=== PATIENT | male | born 1955 | race Caucasian/White ===

== ENCOUNTER 2020-05-15 15:39 | Emergency (ER) | payer MEDICARE, OTHER, SELFPAY ==
[2020-05-15 15:42] VITALS: BP 165/81; PULSE 80; RESP 16; TEMP 37.2; O2SAT 97; BMI 31.4
--- NOTE | 2020-05-15 16:11 | MR_ITS ---
EXAMINATION: MR BRAIN WITHOUT CONTRAST CLINICAL INFORMATION: Episodes of confusion and TIAs. COMPARISON: None. TECHNIQUE: Multiplanar, multisequence imaging of the brain was performed without contrast. FINDINGS: No diffusion abnormalities are identified to suggest an acute or subacute infarct. The ventricles are normal in size. No mass effect or midline shift is seen. No brain parenchymal signal abnormality is noted. No extra-axial fluid collections are seen. The brainstem is normal. 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 The gradient refocused acquisition demonstrates no pathologic magnetic susceptibility artifact to indicate underlying acute or chronic blood products. The craniovertebral junction, marrow signal, and midline structures are normal. The major intracranial flow voids at the level of the [place] are preserved. The dural venous sinus flow voids are maintained. The mastoid air cells and paranasal sinuses are well aerated. MR/MR head/brain wo con IMPRESSION: No acute process. 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
--- NOTE | 2020-05-15 16:11 | ED.NEUROSD ---
HPI - Neuro Symptoms/Deficit General Chief Complaint: Neuro Symptoms/Deficit Stated Complaint: TIA? Time Seen by Provider: 05/15/20 16:11 Source: patient Mode of arrival: ambulatory Limitations: no limitations History of Present Illness Onset (ago): minute(s) (started 45 minutes prior to arrival ) Location: other (seemed confused missed his exit on highway) History of same: Yes (just had normal CT scan and ECHO per him in [place] with his PCP for similar) Severity: moderate Quality: other (resolved) Relieving factors: none Exacerbating factors: none Context: gradual onset On Anticoagulants: No Associated symptoms: denies other symptoms Treatments Prior to Arrival: none Related Data Allergies Allergy/AdvReac Type Severity Reaction Status Date / Time venom-honey bee Allergy Unknown Verified 05/15/20 16:11 Review of Systems Review of Systems: Constitutional : No Weight loss, No Fever, No Chills ENT/Mouth : No sore throat, No Rhinorrhea Eyes: No Eye Pain, No Swelling, No Redness Cardiovascular : No Chest Pain, No SOB, No Dyspnea on Exertion, No Orthopnea, No Edema, No Palpitations Respiratory : No Cough, No Sputum, No Wheezing Gastrointestinal : No Nausea, No Vomiting, No Diarrhea, No Constipation, No abdominal Pain, No Hematochezia, No Melena Genitourinary : No Dysuria, No Urinary Frequency, No Hematuria, Musculoskeletal : No joint pain, No Myalgias, No Joint Swelling Skin : No Skin Lesions, No rash Neuro : No Weakness, No Numbness, No Dizziness, No Headache Psych : No Anxiety/Panic, No Depression Heme/Lymph: No Bruising, No Bleeding,No Lymphadenopathy Endocrine : No Polyuria, No Polydipsia All other systems reviewed and are negative [facility] Past Medical History Medical History (Updated 05/15/20 @ 20:00 by Regla Dwyer DO) 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 Oriented X3. No acute distress. Eyes: Pupils equal, round and reactive to light. ENT: Pharynx normal. Neck: Normal inspection. Neck supple. CVS: Normal heart rate and rhythm. Pulses normal. Respiratory: No respiratory distress. Breath sounds normal. Abdomen: Soft and nontender. Skin: Skin warm and dry. Normal skin color. Normal skin turgor. Extremities: No lower extremity edema. No calf ttp Neuro: Oriented X 3. No motor deficit. No sensory deficit. Course Course Course Narrative: no acute stroke seen on today's MRI at this time has had normal ECHO with his PCP and states his carotids were okay as well, does not need admission at this time will place on ASA 325mg MDM - Neuro Symptoms/Deficit MDM Narrative Medical decision making narrative: 65 yo male healthy here with reported 2 bouts of confusion one today that resolved - worried they are TIAs, he is neuro intact now, just had CT scan and ECHO with PCP, here again today with concern for TIA due to missing his exit and seeming off - labs, EKG< UA, MRI ordered currently negative stroke scale Lab Data Result diagrams: 05/15/20 16:25 05/15/20 16:25 Labs: Lab Results 05/15/20 05/15/20 05/15/20 Range/Units 16:25 16:25 16:25 WBC 11.1 H (4.8-10.8) X10*3/uL RBC 4.20 L (4.60-5.80) X10*6/uL Hgb 12.8 L (14.0-18.0) g/dl Hct 37.9 L (42-52) % MCV 90.2 (80-98) fL MCH 30.5 (27.0-33.0) pg MCHC 33.8 (31.0-36.0) g/dl RDW 12.9 (11.0-16.0) % Plt Count 290 (160-400) X10*3/uL MPV 10.6 (9.4-12.4) fL Immature Gran % (Auto) 0.3 (0.0-0.4) % Neut % (Auto) 68.0 (45-73) % Lymph % (Auto) 14.4 L (20-40) % [place] % (Auto) 12.1 H (2-11) % Eos % (Auto) 4.7 H (0-4) % Baso % (Auto) 0.5 (0-2) % Lymph # (Auto) 1.6 (1.2-4.9) X10*3/uL [place] # (Auto) 1.3 H (0.1-1.2) X10*3/uL Eos # (Auto) 0.5 H (0.0-0.4) X10*3/uL Baso # (Auto) 0.1 (0.0-0.2) X10*3/uL Abs Immat Gran (auto) 0.03 (0.00-0.03) X10*3/uL Absolute Neuts (auto) 7.6 (2.0-8.3) X10*3/uL Absolute Nucleated RBC 0.000 (0.0-0.012) X10*3/uL Nucleated RBC % (auto) 0.0 (0.0-0.2) /100WBC PT (10.8-13.0) SEC INR (0.9-1.1) APTT 66.7 H* (24.1-38.0) SEC Sodium 138 (135-145) mmol/L Potassium 4.1 (3.3-5.1) mmol/l Chloride 103 (96-108) mmol/L Carbon Dioxide 28 (22-29) mmol/L Anion Gap 11 L (12-20) BUN 14 (9-16) mg/dL Creatinine 0.81 (0.5-1.4) mg/dL Estim Creat Clear Calc 114.2 Estimated GFR > 60 Random Glucose 114 (60-115) mg/dL Calcium 8.5 (8.4-10.2) mg/dL Magnesium 2.2 (1.6-2.6) mg/dL Total Bilirubin 0.5 (0.0-1.0) mg/dL Direct Bilirubin 0.2 (0.0-0.5) mg/dL AST 16 (5-37) U/L ALT 15 (0-40) U/L Alkaline Phosphatase 82 (39-117) U/L Troponin I High Sens (<3.5-35.0) ng/L Total Protein 7.0 (6.5-8.0) g/dL Albumin 3.7 (3.5-5.0) g/dL TSH (0.32-4.0) mIU/mL Urine Color Urine Appearance Urine pH (5.0-8.0) Ur Specific [place] (1.005-1.025) Urine Protein (NEG-TRACE) MG/DL Urine Glucose (UA) (NEG) MG/DL Urine Ketones (NEG) MG/DL Urine Blood (NEG) Urine Nitrite (NEG) Ur Leukocyte Esterase (NEG) Urine RBC (0) /HPF Urine WBC (0-4) /HPF Ur Squamous Epith Cells /LPF Urine Bacteria /LPF 05/15/20 05/15/20 05/15/20 Range/Units 16:25 16:25 16:25 WBC (4.8-10.8) X10*3/uL RBC (4.60-5.80) X10*6/uL Hgb (14.0-18.0) g/dl Hct (42-52) % MCV (80-98) fL MCH (27.0-33.0) pg MCHC (31.0-36.0) g/dl RDW (11.0-16.0) % Plt Count (160-400) X10*3/uL MPV (9.4-12.4) fL Immature Gran % (Auto) (0.0-0.4) % Neut % (Auto) (45-73) % Lymph % (Auto) (20-40) % [place] % (Auto) (2-11) % Eos % (Auto) (0-4) % Baso % (Auto) (0-2) % Lymph # (Auto) (1.2-4.9) X10*3/uL [place] # (Auto) (0.1-1.2) X10*3/uL Eos # (Auto) (0.0-0.4) X10*3/uL Baso # (Auto) (0.0-0.2) X10*3/uL Abs Immat Gran (auto) (0.00-0.03) X10*3/uL Absolute Neuts (auto) (2.0-8.3) X10*3/uL Absolute Nucleated RBC (0.0-0.012) X10*3/uL Nucleated RBC % (auto) (0.0-0.2) /100WBC PT 13.0 (10.8-13.0) SEC INR 1.1 (0.9-1.1) APTT (24.1-38.0) SEC Sodium (135-145) mmol/L Potassium (3.3-5.1) mmol/l Chloride (96-108) mmol/L Carbon Dioxide (22-29) mmol/L Anion Gap (12-20) BUN (9-16) mg/dL Creatinine (0.5-1.4) mg/dL Estim Creat Clear Calc Estimated GFR Random Glucose (60-115) mg/dL Calcium (8.4-10.2) mg/dL Magnesium (1.6-2.6) mg/dL Total Bilirubin (0.0-1.0) mg/dL Direct Bilirubin (0.0-0.5) mg/dL AST (5-37) U/L ALT (0-40) U/L Alkaline Phosphatase (39-117) U/L Troponin I High Sens 7.1 (<3.5-35.0) ng/L Total Protein (6.5-8.0) g/dL Albumin (3.5-5.0) g/dL TSH 0.64 (0.32-4.0) mIU/mL Urine Color Urine Appearance Urine pH (5.0-8.0) Ur Specific [place] (1.005-1.025) Urine Protein (NEG-TRACE) MG/DL Urine Glucose (UA) (NEG) MG/DL Urine Ketones (NEG) MG/DL Urine Blood (NEG) Urine Nitrite (NEG) Ur Leukocyte Esterase (NEG) Urine RBC (0) /HPF Urine WBC (0-4) /HPF Ur Squamous Epith Cells /LPF Urine Bacteria /LPF 05/15/20 Range/Units 16:42 WBC (4.8-10.8) X10*3/uL RBC (4.60-5.80) X10*6/uL Hgb (14.0-18.0) g/dl Hct (42-52) % MCV (80-98) fL MCH (27.0-33.0) pg MCHC (31.0-36.0) g/dl RDW (11.0-16.0) % Plt Count (160-400) X10*3/uL MPV (9.4-12.4) fL Immature Gran % (Auto) (0.0-0.4) % Neut % (Auto) (45-73) % Lymph % (Auto) (20-40) % [place] % (Auto) (2-11) % Eos % (Auto) (0-4) % Baso % (Auto) (0-2) % Lymph # (Auto) (1.2-4.9) X10*3/uL [place] # (Auto) (0.1-1.2) X10*3/uL Eos # (Auto) (0.0-0.4) X10*3/uL Baso # (Auto) (0.0-0.2) X10*3/uL Abs Immat Gran (auto) (0.00-0.03) X10*3/uL Absolute Neuts (auto) (2.0-8.3) X10*3/uL Absolute Nucleated RBC (0.0-0.012) X10*3/uL Nucleated RBC % (auto) (0.0-0.2) /100WBC PT (10.8-13.0) SEC INR (0.9-1.1) APTT (24.1-38.0) SEC Sodium (135-145) mmol/L Potassium (3.3-5.1) mmol/l Chloride (96-108) mmol/L Carbon Dioxide (22-29) mmol/L Anion Gap (12-20) BUN (9-16) mg/dL Creatinine (0.5-1.4) mg/dL Estim Creat Clear Calc Estimated GFR Random Glucose (60-115) mg/dL Calcium (8.4-10.2) mg/dL Magnesium (1.6-2.6) mg/dL Total Bilirubin (0.0-1.0) mg/dL Direct Bilirubin (0.0-0.5) mg/dL AST (5-37) U/L ALT (0-40) U/L Alkaline Phosphatase (39-117) U/L Troponin I High Sens (<3.5-35.0) ng/L Total Protein (6.5-8.0) g/dL Albumin (3.5-5.0) g/dL TSH (0.32-4.0) mIU/mL Urine Color YELLOW Urine Appearance CLEAR Urine pH 5.5 (5.0-8.0) Ur Specific [place] 1.020 (1.005-1.025) Urine Protein NEG (NEG-TRACE) MG/DL Urine Glucose (UA) NEG (NEG) MG/DL Urine Ketones NEG (NEG) MG/DL Urine Blood NEG (NEG) Urine Nitrite NEG (NEG) Ur Leukocyte Esterase NEG (NEG) Urine RBC 0 (0) /HPF Urine WBC 0 (0-4) /HPF Ur Squamous Epith Cells TRACE /LPF Urine Bacteria NONE /LPF ECG Data Attestation: I personally reviewed and interpreted this ECG as follows: ECG interpretation date: 05/15/20 ECG interpretation time: 18:02 Interpretation: Rate: 75 Rhythm: NSR [place]: left, LVH Normal P waves. Normal MAD[place]INE. Normal QRS complex. ST T wave : normal qTC: normal prior studies: no acute ischemia The study has been interpreted contemporaneously by me. . NIH Stroke Scale Internal: Initial- Upon Arrival Time: 16:19 Level of Consciousness: Alert Level of Consciousness Questions: Answers both questions correctly Level of Consciousness Commands: Performs both tasks correctly Best Gaze: Normal Visual: No visual loss Facial Palsy: Normal Motor Arm (Right): No drift Motor Arm (Left): No drift Motor Leg (Right): No drift Motor Leg (Left): No drift Limb Ataxia: Absent Sensory: Normal Best Language: No aphasia Dysarthia: Normal Extinction and Inattention: No abnormality Score: 0 Discharge Plan Discharge Clinical Impression: Transient cerebral ischemia Patient Disposition: Home, Self-Care Instructions: Transient Ischemic Attack (ED) Additional Instructions: YOU NEED TO START TAKING 325MG ASPIRIN DAILY UNTIL YOU SEE YOUR DOCTOR Referrals: Physician,Unknown [Primary Care Provider] - 2 days (CALL YOUR PRIMARY CARE ON MONDAY)
--- NOTE | 2020-05-15 16:13 | ECG_ITS ---
Test Reason : ?TIA Blood Pressure : / mmHG Vent. Rate : 075 BPM Atrial Rate : 075 BPM P-R Int : 182 ms QRS Dur : 100 ms QT Int : 372 ms P-R-T Axes : 003 -41 003 degrees QTc Int : 415 ms Normal sinus rhythm Left axis deviation Intra-ventricular conduction delay Abnormal ECG No previous ECGs available Referred By: Regla Dwyer Electronically Signed By:CARLOS BHATTI MD
[2020-05-15 16:33] LABS: MANUAL DIFF FLAG NO
[2020-05-15 16:34] LABS: Basophils Absolute Auto 0.1 X10*3/uL (0.0-0.2); Basophils Percent Auto 0.5 % (0-2); Eosinophils Absolute Auto 0.5 X10*3/uL (0.0-0.4); Eosinophils Percent Auto 4.7 % (0-4); Hematocrit 37.9 % (42-52); Hemoglobin 12.8 g/dl (14.0-18.0); Imm Gran Abs Auto 0.03 X10*3/uL (0.00-0.03); Imm Gran Pct Auto 0.3 % (0.0-0.4); Lymphocytes Absolute Auto 1.6 X10*3/uL (1.2-4.9); Lymphocytes Percent Auto 14.4 % (20-40); Mean Corpuscular HGB Conc 33.8 g/dl (31.0-36.0); Mean Corpuscular Hemoglobin 30.5 pg (27.0-33.0); Mean Corpuscular Volume 90.2 fL (80-98); Mean Platelet Volume 10.6 fL (9.4-12.4); Monocytes Absolute Auto 1.3 X10*3/uL (0.1-1.2); Monocytes Percent Auto 12.1 % (2-11); Neutrophils Absolute Auto 7.6 X10*3/uL (2.0-8.3); Platelet Count 290 X10*3/uL (160-400); Red Cell Distribution Width 12.9 % (11.0-16.0); White Blood Count 11.1 X10*3/uL (4.8-10.8)
[2020-05-15 16:48] LABS: INTERNATIONAL NORM RATIO 1.1 (0.9-1.1)
[2020-05-15 16:51] LABS: Glucose Urine UA NEG (NEG); Leukocyte Esterase Urine NEG (NEG); Nitrite Urine NEG (NEG); PH 5.5 (5.0-8.0); Urine Blood NEG (NEG); Urine Ketones NEG (NEG); Urine Protein NEG (NEG-TRACE)
[2020-05-15 16:55] LABS: Appearance Urine CLEAR; Color Urine YELLOW
[2020-05-15 16:56] LABS: Partial Thromboplastin Time 66.7 SEC (24.1-38.0)
[2020-05-15 17:04] LABS: Troponin-I High Sensitivity 7.1 ng/L (<3.5-35.0)
[2020-05-15 17:11] LABS: Alanine Aminotransferase 15 U/L (0-40); Albumin Level 3.7 g/dL (3.5-5.0); Alkaline Phosphatase 82 U/L (39-117); Anion Gap 11 (12-20); Aspartate Amino Transferase 16 U/L (5-37); Bilirubin Direct 0.2 mg/dL (0.0-0.5); Bilirubin Total 0.5 mg/dL (0.0-1.0); Blood Urea Nitrogen 14 mg/dL (9-16); Calcium 8.5 mg/dL (8.4-10.2); Carbon Dioxide 28 mmol/L (22-29); Chloride 103 mmol/L (96-108); Creatinine Clr Calc Pharmacy 114.2; Estimated Glomerular Filt Rate > 60; Glucose Random 114 mg/dL (60-115); Magnesium 2.2 mg/dL (1.6-2.6); Potassium 4.1 mmol/l (3.3-5.1); Sodium 138 mmol/L (135-145)
[2020-05-15 17:15] LABS: RBC Urine 0 /HPF (0); Squamous Epithelial Cell Urine TRACE /LPF; WBC Urine 0 /HPF (0-4)
[2020-05-15 17:31] LABS: Thyroid Stimulating Hormone 0.64 mIU/mL (0.32-4.0)
== END 2020-05-15 20:59 | disposition home or self-care (01) ==
PROVIDERS: Emergency Provider Emergency Medicine
DX: G45.9 Transient cerebral ischemic attack, unspecified (principal)
CPT/HCPCS: 36415; 70551; 80048; 80076; 81001; 81003; 83735; 84443; 84484; 85025; 85610; 85730; 93005; 99283; 99285

== ENCOUNTER 2020-05-27 18:30 | Outpatient (REF) | payer MEDICARE, OTHER, SELFPAY ==
--- NOTE | 2020-05-27 | MR_ITS ---
EXAMINATION: MR ANGIOGRAPHY BRAIN WITHOUT CONTRAST CLINICAL INFORMATION: Transient global amnesia. COMPARISON: Brain MRI from 05/15/2020. TECHNIQUE: 3D [id number]-fi-mxmtye MR angiography was performed through the brain without the use of intravenous gadolinium and axial source images were reviewed along with rotating MIPs. FINDINGS: Normal flow-related signal within the anterior circulation without evidence of focal stenosis or occlusion of the intradural internal carotid, middle cerebral, or anterior cerebral arteries. Normal flow-related signal within the V4 segments of the vertebral arteries bilaterally. Normal flow-related signal within the proximal posterior inferior cerebellar arteries bilaterally. Small fenestration of the proximal basilar artery. Normal flow-related signal within the proximal segments of the superior cerebellar arteries bilaterally. Normal P1 segment of the left posterior cerebral artery. The P1 segment of the right posterior cerebral artery is diminutive. Robust flow across the right posterior indicating artery with origin. Normal appearance of the distal school custodian bilaterally. No demonstrated intradural aneurysms. Chronic lacunar infarcts of the deep nuclei and cerebellar hemispheres. Otherwise, no additional significant abnormalities on limited evaluation of the intracranial structures. Mild mucosal thickening of the paranasal sinuses. MR/MR angio head wo con IMPRESSION: MRA of the head without proximal occlusion or flow-limiting stenosis. No demonstrated intracranial aneurysm.
== END 2020-05-27 18:31 | disposition home or self-care (01) ==
LOC: HO.MRI 18:30
PROVIDERS: Visit Provider Psychiatry & Neurology Neurology
DX: G45.4 Transient global amnesia (principal)
CPT/HCPCS: 70544

== ENCOUNTER 2020-09-29 12:26 | Outpatient (REF) | payer MEDICARE, OTHER, SELFPAY ==
--- NOTE | 2020-09-29 13:00 | EEG_ITS ---
The waking background activity consists of a low voltage posterior symmetrical alpha of 9 hertz, intermixed with low voltage fast frequencies anteriorly. Drowsiness is characterized by diffuse theta slowing. During sleep symmetrical frontal central sleep spindles, vertex sharp transients, and K complexes developed over both hemispheres. Arousals are unremarkable. The patient remains asymptomatic. A few instances of increased amplitude theta are noted over the left frontal region. No clearly epileptiform discharges seen. IMPRESSION: This 24-hour ambulatory EEG is considered within normal limits. The patient was asymptomatic during this study. MD DARBY [place]/MICAH / [id number]
== END 2020-09-29 12:27 | disposition home or self-care (01) ==
LOC: HO.NEURO 12:26
PROVIDERS: Visit Provider Psychiatry & Neurology Neurology
DX: R56.9 Unspecified convulsions (principal)
CPT/HCPCS: 95708

== ENCOUNTER 2020-10-29 10:51 | Outpatient (REF) | payer MEDICARE, OTHER, SELFPAY ==
[2020-10-29 11:57] LABS: MANUAL DIFF FLAG NO
[2020-10-29 12:03] LABS: Basophils Absolute Auto 0.1 X10*3/uL (0.0-0.2); Basophils Percent Auto 0.9 % (0-2); Eosinophils Absolute Auto 0.5 X10*3/uL (0.0-0.4); Eosinophils Percent Auto 4.7 % (0-4); Hematocrit 43.7 % (42-52); Hemoglobin 14.4 g/dl (14.0-18.0); Imm Gran Abs Auto 0.02 X10*3/uL (0.00-0.03); Imm Gran Pct Auto 0.2 % (0.0-0.4); Lymphocytes Absolute Auto 1.8 X10*3/uL (1.2-4.9); Lymphocytes Percent Auto 18.4 % (20-40); Mean Corpuscular Hemoglobin 30.6 pg (27.0-33.0); Mean Corpuscular Volume 92.8 fL (80-98); Mean Platelet Volume 11.3 fL (9.4-12.4); Monocytes Absolute Auto 1.2 X10*3/uL (0.1-1.2); Neutrophils Absolute Auto 6.2 X10*3/uL (2.0-8.3); Neutrophils Percent Auto 63.8 % (45-73); Platelet Count 229 X10*3/uL (160-400); Red Blood Count 4.71 X10*6/uL (4.60-5.80); Red Cell Distribution Width 12.8 % (11.0-16.0); White Blood Count 9.7 X10*3/uL (4.8-10.8)
[2020-10-29 12:06] LABS: Prothrombin Time 11.8 SEC (10.8-13.0)
[2020-10-29 12:34] LABS: Partial Thromboplastin Time 67.3 SEC (24.1-38.0)
== END 2020-10-29 10:52 | disposition home or self-care (01) ==
LOC: HO.LAB 10:51
PROVIDERS: Visit Provider Psychiatry & Neurology Neurology
DX: G40.209 Localization-related (focal) (partial) symptomatic epilepsy and epileptic syndromes with complex partial seizures, not intractable, without status epilepticus (principal)
CPT/HCPCS: 36415; 80156; 85025; 85610; 85730

== ENCOUNTER 2021-04-12 12:38 | Outpatient (REF) | payer MEDICARE, OTHER, SELFPAY ==
[2021-04-12 13:16] LABS: MANUAL DIFF FLAG NO
[2021-04-12 13:19] LABS: Basophils Absolute Auto 0.1 X10*3/uL (0.0-0.2); Basophils Percent Auto 0.7 % (0-2); Eosinophils Absolute Auto 0.4 X10*3/uL (0.0-0.4); Eosinophils Percent Auto 4.7 % (0-4); Hematocrit 40.6 % (42-52); Hemoglobin 13.8 g/dl (14.0-18.0); Imm Gran Abs Auto 0.03 X10*3/uL (0.00-0.03); Imm Gran Pct Auto 0.3 % (0.0-0.4); Lymphocytes Absolute Auto 1.5 X10*3/uL (1.2-4.9); Lymphocytes Percent Auto 16.6 % (20-40); Mean Corpuscular Hemoglobin 31.5 pg (27.0-33.0); Mean Corpuscular Volume 92.7 fL (80-98); Monocytes Absolute Auto 0.9 X10*3/uL (0.1-1.2); Monocytes Percent Auto 10.4 % (2-11); Neutrophils Absolute Auto 5.9 X10*3/uL (2.0-8.3); Neutrophils Percent Auto 67.3 % (45-73); Platelet Count 264 X10*3/uL (160-400); Red Blood Count 4.38 X10*6/uL (4.60-5.80); White Blood Count 8.8 X10*3/uL (4.8-10.8)
[2021-04-12 14:26] LABS: Carbamazepine Tegretol 5.3 mcg/mL (5.0-12.0)
== END 2021-04-12 12:39 | disposition home or self-care (01) ==
LOC: HO.LAB 12:38
PROVIDERS: Visit Provider Psychiatry & Neurology Neurology
DX: G40.209 Localization-related (focal) (partial) symptomatic epilepsy and epileptic syndromes with complex partial seizures, not intractable, without status epilepticus (principal)
CPT/HCPCS: 36415; 80156; 85025

== ENCOUNTER 2021-08-10 06:28 | Outpatient (REF) | payer MEDICARE, OTHER, SELFPAY ==
[2021-08-10 11:26] LABS: MANUAL DIFF FLAG NO
[2021-08-10 11:32] LABS: Basophils Absolute Auto 0.1 X10*3/uL (0.0-0.2); Basophils Percent Auto 0.7 % (0-2); Eosinophils Absolute Auto 0.4 X10*3/uL (0.0-0.4); Eosinophils Percent Auto 5.4 % (0-4); Hematocrit 42.6 % (42.0-52.0); Hemoglobin 14.1 g/dl (14.0-18.0); Imm Gran Abs Auto 0.02 X10*3/uL (0.00-0.03); Imm Gran Pct Auto 0.2 % (0.0-0.4); Lymphocytes Absolute Auto 1.6 X10*3/uL (1.2-4.9); Lymphocytes Percent Auto 19.4 % (20-40); Mean Corpuscular HGB Conc 33.1 g/dl (31.0-36.0); Mean Corpuscular Hemoglobin 31.3 pg (27.0-33.0); Mean Corpuscular Volume 94.5 fL (80.0-98.0); Mean Platelet Volume 11.5 fL (9.4-12.4); Monocytes Absolute Auto 1.2 X10*3/uL (0.1-1.2); Monocytes Percent Auto 14.1 % (2-11); Neutrophils Absolute Auto 4.9 x10*3/uL (2.0-8.3); Neutrophils Percent Auto 60.2 % (45-73); Platelet Count 227 X10*3/uL (160-400); Red Blood Count 4.51 X10*6/uL (4.60-5.80); Red Cell Distribution Width 12.6 % (11.0-16.0); White Blood Count 8.2 X10*3/uL (4.8-10.8)
[2021-08-10 11:47] LABS: Anion Gap 11 (12-20); Carbon Dioxide 31 mmol/L (22-29); Chloride 104 mmol/L (96-108); Sodium 141 mmol/L (135-145)
[2021-08-10 12:08] LABS: Cholesterol 260 mg/dL; HDL Cholesterol 34 mg/dL; Iron 136 mcg/dL (45-160); LDL Cholesterol Calculated 193 mg/dl; Percent Iron Saturation 48 % (15-50); Total Iron Binding Capacity 285 mcg/dL (228-428); Triglycerides 166 mg/dL; Unsaturated Iron Binding 149 ug/dL
[2021-08-10 12:50] LABS: Carbamazepine Tegretol 5.7 mcg/mL (5.0-12.0)
== END 2021-08-10 06:29 | disposition home or self-care (01) ==
LOC: HO.HMGCLDS 06:28
PROVIDERS: Referring Provider Psychiatry & Neurology Neurology; Visit Provider Internal Medicine
DX: E78.5 Hyperlipidemia, unspecified (principal); D64.9 Anemia, unspecified; G40.209 Localization-related (focal) (partial) symptomatic epilepsy and epileptic syndromes with complex partial seizures, not intractable, without status epilepticus; Z86.73 Personal history of transient ischemic attack (TIA), and cerebral infarction without residual deficits
CPT/HCPCS: 36415; 80051; 80061; 80156; 83540; 85025

== ENCOUNTER 2021-08-26 13:44 | Outpatient (REF) | payer MEDICARE, OTHER, SELFPAY ==
--- NOTE | ~2021-08-26 | US_ITS ---
EXAMINATION: US RETROPERITONEAL LIMITED (AORTA) CLINICAL INFORMATION: Nicotine dependence. COMPARISON: None TECHNIQUE: Allen-scale, color Doppler and spectral Doppler evaluation of the abdominal aorta. FINDINGS: The measurements of the aorta in maximum AP and transverse dimensions respectively are as follows: Proximal: 2.65 x 2.30 cm. Mid: 2.63 x 2.18 cm. Distal: 2.8 x 3.0 cm. PSV: 81.1 cm/s. The measurements of the common iliac arteries in maximum AP and TRV dimensions are as follows: Right Common Iliac Artery: 1.3 x 1.4 cm. Left Common Iliac Artery: 1.6 x 1.0 cm. US/US abdominal aortic aneurysm IMPRESSION: Minimal aneurysmal dilatation of the infrarenal abdominal aorta which measures up to 3 cm in maximum dimension.
== END 2021-08-26 13:45 | disposition home or self-care (01) ==
LOC: HO.HMGCX 13:44
PROVIDERS: PCP Internal Medicine; Visit Provider Internal Medicine
DX: Z87.891 Personal history of nicotine dependence (principal)
CPT/HCPCS: 76706

== ENCOUNTER → 2021-12-02 13:37 | Outpatient (BNVA) | payer MEDICARE, OTHER, SELFPAY | PROVIDERS: PCP Internal Medicine; Visit Provider Surgery Vascular Surgery | DX: I71.4 Abdominal aortic aneurysm, without rupture (principal) | CPT/HCPCS: 99202 ==

== ENCOUNTER 2021-12-07 13:59 | Outpatient (REF) | payer MEDICARE, OTHER, SELFPAY ==
[2021-12-07 15:22] LABS: Anion Gap 11 (12-20); Carbon Dioxide 29 mmol/L (22-29); Chloride 104 mmol/L (96-108); Potassium 4.5 mmol/L (3.3-5.1); Sodium 139 mmol/L (135-145)
[2021-12-08 12:22] LABS: Carbamazepine Tegretol 6.8 mcg/mL (5.0-12.0)
== END 2021-12-07 14:00 | disposition home or self-care (01) ==
LOC: HO.LAB 13:59
PROVIDERS: Visit Provider Psychiatry & Neurology Neurology
DX: G40.209 Localization-related (focal) (partial) symptomatic epilepsy and epileptic syndromes with complex partial seizures, not intractable, without status epilepticus (principal); Z79.899 Other long term (current) drug therapy
CPT/HCPCS: 36415; 80051; 80156

== ENCOUNTER → 2024-09-11 14:47 | Outpatient (REF) | payer MEDICARE, OTHER, SELFPAY | LOC: HO.SL 14:47 | PROVIDERS: PCP Internal Medicine; Visit Provider Internal Medicine | DX: G47.33 Obstructive sleep apnea (adult) (pediatric) (principal) | CPT/HCPCS: 95806 ==

== ENCOUNTER → 2024-09-12 14:58 | Outpatient (BNV) | payer MEDICARE, OTHER, SELFPAY | PROVIDERS: PCP Internal Medicine; Visit Provider Internal Medicine | DX: G47.33 Obstructive sleep apnea (adult) (pediatric) (principal) | CPT/HCPCS: 95806 ==

== ENCOUNTER 2024-10-03 12:50 | Outpatient (AMB) | payer MEDICARE, OTHER, SELFPAY ==
--- NOTE | 2024-10-03 12:57 | MHC.OFFWIV ---
Intake Vital Signs 10/03/24 12:58 Height 6 ft Weight 261 lb BMI 35.4 BP 140/82 H Blood Pressure Location Lt brachial Position Sitting Pulse 77 Pulse Source Pulse Oximeter Temp 97.7 F Temp Source Oral Pulse Oximetry (%) 97 Oxygen Delivery Method Room Air Intake Visit Reasons: EP cold, cough, fever, weakness, wheezing Intake Note: Patient here for cough, loss of appetite, fatigue and wheezing that started last . Patient Tobacco Use Status: Former Tobacco user Allergies venom-honey bee Allergy (Intermediate, Verified 10/03/24 12:59) hives Do you need a note to return to daycare/school/sports/work: No HPI HPI Comments History of Present Illness Details 69 y/o male patient who presents to the walk in clinic with c/o cough, chest tightness, loss of appetite, fatigue and wheezing that started last . 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 Surgical History History of torn meniscus of right knee Family History Mother Diabetes Hepatitis C Father Emphysema lung Bipolar 1 disorder Mental health disorder Social History Housing: House Alcohol intake: current Alcohol intake frequency: holidays/special occasions only Alcohol type: wine and hard liquor Patient Tobacco Use Status: Former Tobacco user Tobacco use type: Pipe e-Cigarette/Vaping Use: Never Used Second Hand Smoke Exposure: Yes service: No Current occupational status: retired Cognitive needs: No Hearing needs: No Vision needs: No Review of Systems Const All systems reviewed & are unremarkable except as noted in HPI and below Physical Exam Vital Signs: Last Vital Signs Temp 97.7 F 10/03/24 12:58 Pulse 77 10/03/24 12:58 BP 140/82 H 10/03/24 12:58 Pulse Ox 97 10/03/24 12:58 Oxygen Delivery Method Room Air 10/03/24 12:58 BMI result Body Mass Index 35.4 Const General: cooperative and no acute distress Nutritional Appearance: obese Orientation/consciousness: patient oriented x3 HEENT Head: Yes normocephalic Ears: external ears normal and TM abnormal with fluid behind the TM bilateral General nose exam: Nasal discharge present Face and sinus: Yes sinus tenderness Mouth: moist mucous membranes Throat: Yes uvula midline Resp Effort & Inspection: normal respiratory effort and able to speak in complete sentences Auscultation: clear to auscultation bilaterally, no crackles, no rales, no rhonchi and no wheezes Cardio Heart sounds: S1 normal heart sound present and S2 normal heart sound present Neuro General: patient oriented x3 Assessment & Plan Assessment & Plan (1) Acute respiratory disease: Code(s): J06.9 - Acute upper respiratory infection, unspecified Plan: Ordered SARs Ordered Z-pack and cough medicine. Acetaminophen for pain and fever relief. Orders: Orders SARS-CoV2/FLU/RSV Today J06.9 - Acute upper respiratory infection, unspecified Medications: New azithromycin 500 mg PO DAILY 3 days 3 tabs 0RF J06.9 - Acute upper respiratory infection, unspecified benzonatate 200 mg (2 x 100 mg) PO BID 60 caps 0RF cough J06.9 - Acute upper respiratory infection, unspecified dextromethorphan polistirex ER (Delsym 12 hour) 10 mL PO Q12H 89 mL 0RF cough J06.9 - Acute upper respiratory infection, unspecified Coding Level of Care Code Est Pt Level 4 (71614) Diagnoses Acute respiratory disease J06.9 Time Spent (min) 20
[2024-10-03 12:58] VITALS: BP 140/82; PULSE 77; TEMP 36.5; O2SAT 97; BMI 35.4
== END 2024-10-03 14:03 | disposition home or self-care (01) ==
PROVIDERS: PCP Internal Medicine; Visit Provider Nurse Practitioner Family
DX: J06.9 Acute upper respiratory infection, unspecified (principal)

== ENCOUNTER 2024-10-03 12:50 | Outpatient (REF) | payer MEDICARE, OTHER, SELFPAY ==
[2024-10-03 17:39] LABS: Influenza A PCR NEGATIVE (Negative); Influenza B PCR NEGATIVE (Negative); Resp Syncy Virus RNA Qual PCR NEGATIVE (Negative); SARS COV2 PCR INHOUSE NEGATIVE (Negative)
== END 2024-10-03 12:51 | disposition home or self-care (01) ==
LOC: HO.LAB 12:50
PROVIDERS: Nurse Practitioner Family; PCP Internal Medicine
DX: J06.9 Acute upper respiratory infection, unspecified (principal)
CPT/HCPCS: 0241U; 99212

== ENCOUNTER 2025-06-11 08:16 | Outpatient (AMB) | payer MEDICARE, OTHER, SELFPAY ==
[2025-06-11 08:26] VITALS: BP 134/82; PULSE 65; O2SAT 98; BMI 35.5
--- NOTE | 2025-06-11 08:26 | MHC.PC.OV ---
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 Accompanied by: Self / Same As Patient Allergies venom-honey bee Allergy (Intermediate, Verified 06/11/25 08:56) hives Medication List - Last Reconciled 06/11/25 by Olivia Farrell MD carbamazepine (Tegretol) 200 mg PO TID 90 days Tobacco use date assessed: 06/11/25 Fall risk assessment: No Falls in past year Last assessed Fall Risk: 06/11/25 Dental Screening Dental Screen Date: 06/11/25 Did you have a dental visit in the last 12 months?: Yes Did you have a dental problem in the last 6 months where you did not have access to dental care?: No Was dental information given to patient?: Patient has dentist [facility] Medical History Acute respiratory disease Dyslipidemia Aneurysmal dilatation Elevated blood pressure reading Normocytic anemia Former smoker Cerebellar infarct Seizures Meniscus, medial, derangement 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 Surgical History History of torn meniscus of right knee Family History Mother Diabetes Hepatitis C Father Emphysema lung Bipolar 1 disorder Mental health disorder Social History Housing: House Alcohol intake: current Alcohol intake frequency: holidays/special occasions only Alcohol type: wine and hard liquor Patient Tobacco Use Status: Former Tobacco user Tobacco use type: Pipe e-Cigarette/Vaping Use: Never Used Second Hand Smoke Exposure: Yes service: No Current occupational status: retired Cognitive needs: No Hearing needs: No Vision needs: Yes Questionnaire PHQ-9 Over the last 2 weeks, how often have you been bothered by any of the following problems? 1. Little interest or pleasure in doing things: not at all 2. Feeling down, depressed, or hopeless: not at all 3. Trouble falling or staying asleep, or sleeping too much: not at all 4. Feeling tired or having little energy: not at all 5. Poor appetite or overeating: not at all 6. Feeling bad about yourself - or that you are a failure or have let yourself or your family down: not at all 7. Trouble concentrating on things, such as reading the newspaper or watching television: not at all 8. Moving or speaking so slowly that other people could have noticed. Or the opposite - being so fidgety or restless that you have been moving around a lot more than usual: not at all 9. Thoughts that you would be better off or of hurting yourself in some way: not at all Total score: 0 Depression Screening Interpretation: Negative Depression Screening Done: Yes 12817 - PHQ-9 Billing: Yes Source: Developed by Drs. Rubin Flores, Kaylee Plascencia, Bro Landers and colleagues, with an educational bola from [employer]. Thrive Questionnaire Date Thrive assessed: 06/09/25 I am a: Patient What is your living situation today?: I choose not to answer this question Within the past 12 months, did the food you bought not last and you didn't have the money to get more?: I choose not to answer this question Within the past 12 months, did you worry whether your food would run out before you got money to buy more?: I choose not to answer this question Do you have trouble paying for medicines?: I choose not to answer this question Do you have trouble getting transportation to medical appointments?: I choose not to answer this question Do you have trouble paying your heating and electricity bill?: I choose not to answer this question Do you have trouble taking care of your child, family member or friend?: I choose not to answer this question Do you have trouble with day-to-day activities such as bathing, preparing meals, shopping, managing finances, etc.?: I choose not to answer this question Are you currently unemployed and looking for a job?: I choose not to answer this question Are you interested in more education?: I choose not to answer this question Please select the resources that you would like help with: None Currently or been in a relationship where the following occur: No concerns reported THRIVE Score: 0 AUDIT C Alcohol Use Questionnaire (AUDIT-C) 1. How often do you have a drink containing alcohol?: Never 3. How often do you have six or more drinks on one occasion?: Never Total Score: 0 Score Reviewed/Action Taken: No FRANCISCA-7 AMB Questionnaire FRANCISCA-7 Date FRANCISCA - 7 assessed: 06/11/25 Feeling nervous, anxious, or on edge: 0 = Not at all Not being able to stop or control worryin = Not at all Worrying too much about different things: 0 = Not at all Trouble relaxin = Not at all Being so restless that it is hard to sit still: 0 = Not at all Becoming easily annoyed or irritable: 0 = Not at all Feeling afraid as if something awful might happen: 0 = Not at all Total FRANCISCA-7 score (0-4 normal; 5-9 mild; 10-14 moderate; 15-21 severe): 0 Source: Developed by Drs. Rubin Flores, Kaylee Plascencia, Bro Landers and colleagues, with an educational bola from [employer]. FRANCISCA-7 Assessment Billing FRANCISCA-7 Assessment Tool: FRANCISCA-7 Assessment 17113 Review of Systems Const All systems reviewed & are unremarkable except as noted in HPI and below Card Denies chest pain at rest, Denies chest pain with activity, Denies edema, Denies irregular heart rhythm, Denies claudication, Denies dyspnea, Denies dyspnea on exertion, Denies orthopnea, Denies paroxysmal nocturnal dyspnea and Denies slow heart rate Resp Denies cough, Denies dyspnea and Denies dyspnea on exertion GI Denies abdominal pain, Denies change in bowel habits, Denies excessive flatus, Denies nausea and Denies vomiting Skin/Breast Denies bleeding lesions, Denies changing lesions and Denies rash Neuro Denies lack of coordination Physical exam (Primary Care) Vital Signs: Last Vital Signs Pulse 65 06/11/25 08:26 BP 134/82 06/11/25 08:26 Pulse Ox 98 06/11/25 08:26 Oxygen Delivery Method Room Air 06/11/25 08:26 BMI result Body Mass Index 35.5 BMI Assessment/Plan discussion: High BMI High, discussed plan: lifestyle, weight reduction, dietary and physical activity Tobacco/Smoking Status: Tobacco use Status Tobacco use date assessed 06/11/25 06/11/25 08:29 Patient Tobacco Use Status Former Tobacco user 06/11/25 08:29 Tobacco use type Pipe 06/11/25 08:29 e-Cigarette/Vaping Use Never Used 06/11/25 08:29 PHQ-9: PHQ-9 Score PHQ-9: Total score 0 06/11/25 08:29 Depression Screening Interpretation: Negative Thrive Assessment: Date of Thrive Assessment Date Thrive assessed 06/09/25 06/11/25 08:29 Currently or been in a relationship where the following occur: No concerns reported [facility] Head: Yes normal to inspection, Yes normocephalic and Yes atraumatic Ears: external ears normal Eyes General: appearance normal, both eyes and all related structures Eyelids: Yes eyelids normal Conjunctivae: conjunctivae normal Neck Neck: Yes normal visual inspection and Yes supple Resp Effort & Inspection: normal respiratory effort Auscultation: clear to auscultation bilaterally Cardio Jugular venous distension: no JVD Rate: regular rate Rhythm: regular rhythm Heart sounds: S1 normal heart sound present and S2 normal heart sound present GI Inspection: Yes normal to inspection Palpation (GI): Soft to palpation and nontender Auscultation: normal bowel sounds Skin General skin exam: no rashes or lesions noted Neuro General: no focal motor deficits Extrem General: Yes full ROM Psych Appearance: grossly normal Coding Additional Codes PHQ-9 - 11216 - PHQ-9 Billing: Yes ([id number]) FRANCISCA-7 Assessment Billing - FRANCISCA-7 Assessment Tool: FRANCISCA-7 Assessment 77014 ([id number])
--- NOTE | 2025-06-11 09:12 | A.OFFVIS_ITS ---
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 [place] of care reviewed and updated. The patient is a 70-year-old male presenting for a Medicare Annual Wellness Exam. His past medical history is significant for a cerebellar infarct a few years ago with no residual deficits. 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 Due to this history, vaccinations are contraindicated, though he did receive a COVID-19 vaccine. Declines flu and pneumonia vaccine today. Surgical history includes a right knee surgery for a torn meniscus. He underwent a colonoscopy last year which revealed a sessile serrated polyp that was removed, with a recommendation for a repeat colonoscopy in 5 to 10 years. The patient has a diagnosis of very mild obstructive sleep apnea from a study in August and has been using a CPAP for five years. He has a known allergy to bees. Family history is notable for a mother with diabetes and hepatitis C, and a father with bipolar disorder and emphysema. The patient is classified as a former smoker for screening purposes, having tried a cigarette once or twice, which prompted a negative screening abdominal ultrasound. He reports he does not drink alcohol. 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 Surgical History History of torn meniscus of right knee Family History Mother Diabetes Hepatitis C Father Emphysema lung Bipolar 1 disorder Mental health disorder Social History (Updated 06/11/25 @ 09:22 by Olivia Farrell MD) Housing: House Alcohol intake: former Patient Tobacco Use Status: Former Tobacco user Tobacco use type: Pipe e-Cigarette/Vaping Use: Never Used Second Hand Smoke Exposure: Yes service: No Current occupational status: retired Cognitive needs: No Hearing needs: No Vision needs: Yes Questionnaire Medicare Wellness Checkup [age] What gender do you identify with?: male During the past 4 weeks, how much have you been bothered by emotional problems such as feeling anxious, depressed, irritable, sad or downhearted, and blue?: not at all During the past 4 weeks, has your physical & emotional health limited your social activities with family, friends, neighbors, or groups?: not at all During the past 4 weeks, how much bodily pain have you generally had?: no pain During the past 4 weeks, was someone available to help you if you needed & wanted help?: yes, as much as I wanted During the past 4 weeks, what was the hardest physical activity you could do for at least 2 minutes?: heavy Can you get to places out of walking distance without help? (For eg., can you travel alone on buses, taxis or drive your car?): Yes Can you go shopping for groceries or clothes without someone's help?: Yes Can you prepare your own meals?: Yes Can you do your housework without help?: Yes Because of any health problems, do you need the help of another person with your personal care needs such as eating, bathing, dressing or getting around the house?: No Can you handle your own money without help?: Yes During the past 4 weeks, how would you rate your health in general?: excellent During the past 4 weeks how have things been going for you?: very well; could hardly better Are you having difficulties driving your car?: no Do you always fasten your seat belt when you are in a car?: yes, usually During past 4 weeks, have you been bothered by the following: never: Falling or dizzy when standing up, Sexual problems?, Trouble eating well?, Teeth or denture problems?, Problems using the telephone? and Tiredness or fatigue? Have you fallen 2 or more times in the past year?: No Are you afraid of falling?: No Are you a smoker?: no During the past 4 weeks, how many drinks of wine, beer, or other alcoholic beverages did you have?: no alcohol at all Do you exercise for about 20 minutes 3 or more times a week?: yes, all the time Have you been given information to help with the following?: yes: Hazards in your house that might hurt you? and yes: Keeping track of your medications? How often do you have trouble taking medicines the way you have been told to take them?: I always take medicine as prescribed How confident are you that you can control & manage most of your health pro blems?: very confident What is your race?: White Mini Mental State Exam (MMSE) Orientation What is the (year) (season) (date) (day) (month)?: year, season, date, day and month Where are we (state) (county) (town or city) (hospital) (floor)?: state, county, town or city, hospital/clinic and floor Registration Name of 3 unrelated objects clearly and slowly, then ask patient to repeat all 3 of them. (1st repeat determines score. Make sure they can repeat all three): object 1, object 2 and object 3 Attention & Calculation (CHOOSE ONE) Spell WORLD backwards (DLROW): 5 letters Recall Ask patient to repeat the 3 items from question #3.: object 1, object 2 and object 3 Language Show patient a wristwatch & ask what it is. Repeat for pencil.: watch and pencil Ask the patient to repeat the phrase 'No ifs, ands, or buts' after you.: correct Ask the patient to 'take a piece of paper with their right hand' 'fold paper in half' 'place paper on floor': take paper in right hand, fold paper in half and place paper on floor Print the sentence 'CLOSE YOUR EYES' on a piece. If patient actually closes eyes then score.: followed written direction Give patient a blank piece of paper & ask to write a sentence. Score if it contains a noun & verb.: sentence contains subject and verb Ask patient to copy figure of intersecting pentagons exactly. Score if all 10 angles & 2 intersects are included.: all 10 angles present & 2 are intersected Score Score: 30 Activity of Daily Living Bathing - sponge bath, tub bath or shower: receives no assistance (gets in/out by self, if usual bathing means Dressing - getting clothes from closets & drawers, including inner/outer garments & fasteners.: gets clothes & gets completely dressed without help Toileting - going to the 'toilet room' for urine/bowel elimination & cleaning s elf/arranging clothes: goes to toilet room, cleans self, arranges clothes without help Transfer: moves in & out of bed and chair without help (may use support object) Continence: controls urination/bowel movements completely by self Feeding: feeds self without help Total Score: 0 Information obtained from: patient Using telephone: independent Traveling: independent Shopping: independent Preparing meals: independent Housework: independent Taking medicine: independent Managing money: independent PHQ-9 Over the last 2 weeks, how often have you been bothered by any of the following problems? 1. Little interest or pleasure in doing things: not at all 2. Feeling down, depressed, or hopeless: not at all 3. Trouble falling or staying asleep, or sleeping too much: not at all 4. Feeling tired or having little energy: not at all 5. Poor appetite or overeating: not at all 6. Feeling bad about yourself - or that you are a failure or have let yourself or your family down: not at all 7. Trouble concentrating on things, such as reading the newspaper or watching television: not at all 8. Moving or speaking so slowly that other people could have noticed. Or the opposite - being so fidgety or restless that you have been moving around a lot more than usual: not at all 9. Thoughts that you would be better off or of hurting yourself in some way: not at all Total score: 0 Depression Screening Interpretation: Negative Depression Screening Done: Yes 81444 - PHQ-9 Billing: Yes Source: Developed by Drs. Rubin Flores, Kaylee Plascencia, Bro Landers and colleagues, with an educational bola from [employer]. PHQ-2/PHQ-9 PHQ-2 Over the last 2 weeks, how often have you been bothered by any of the following problems? 1. Little interest or pleasure in doing things: not at all 2. Feeling down, depressed, or hopeless: not at all Total score: 0 If score is 3 or greater, continue 3. Trouble falling or staying asleep, or sleeping too much: not at all 4. Feeling tired or having little energy: not at all 5. Poor appetite or overeating: not at all 6. Feeling bad about yourself - or that you are a failure or have let yourself or your family down: not at all 7. Trouble concentrating on things, such as reading the newspaper or watching television: not at all 8. Moving or speaking so slowly that other people could have noticed. Or the opposite - being so fidgety or restless that you have been moving around a lot more than usual: not at all 9. Thoughts that you would be better off or of hurting yourself in some way: not at all Total score: 0 0-4 None-Minimal, 5-9 Mild, 10-14 Moderate, 15-19 Moderately Severe, 20-27 Severe Source: Developed by Drs. Rubin Flores, Kaylee Plascencia, Bro Landers and colleagues, with an educational bola from [employer]. Thrive Questionnaire Date Thrive assessed: 06/11/25 I am a: Patient What is your living situation today?: I choose not to answer this question Within the past 12 months, did the food you bought not last and you didn't have the money to get more?: I choose not to answer this question Within the past 12 months, did you worry whether your food would run out before you got money to buy more?: I choose not to answer this question Do you have trouble paying for medicines?: I choose not to answer this question Do you have trouble getting transportation to medical appointments?: I choose not to answer this question Do you have trouble paying your heating and electricity bill?: I choose not to answer this question Do you have trouble taking care of your child, family member or friend?: I choose not to answer this question Do you have trouble with day-to-day activities such as bathing, preparing meals, shopping, managing finances, etc.?: I choose not to answer this question Are you currently unemployed and looking for a job?: I choose not to answer this question Are you interested in more education?: I choose not to answer this question Please select the resources that you would like help with: None Currently or been in a relationship where the following occur: No concerns reported THRIVE Score: 0 FRANCISCA-7 AMB Questionnaire FRANCISCA-7 Date FRANCISCA - 7 assessed: 06/11/25 Feeling nervous, anxious, or on edge: 0 = Not at all Not being able to stop or control worryin = Not at all Worrying too much about different things: 0 = Not at all Trouble relaxin = Not at all Being so restless that it is hard to sit still: 0 = Not at all Becoming easily annoyed or irritable: 0 = Not at all Feeling afraid as if something awful might happen: 0 = Not at all Total FRANCISCA-7 score (0-4 normal; 5-9 mild; 10-14 moderate; 15-21 severe): 0 Source: Developed by Drs. Rubin Flores, Kaylee Plascencia, Bro Landers and colleagues, with an educational bola from [employer]. FRANCISCA-7 Assessment Billing FRANCISCA-7 Assessment Tool: FRANCISCA-7 Assessment 27657 Review of Systems Const All systems reviewed & are unremarkable except as noted in HPI and below Card Denies chest pain at rest, Denies chest pain with activity, Denies edema, Denies irregular heart rhythm, Denies claudication, Denies dyspnea, Denies dyspnea on exertion, Denies orthopnea, Denies paroxysmal nocturnal dyspnea and Denies slow heart rate Resp Denies cough, Denies dyspnea and Denies dyspnea on exertion Physical Exam Vital Signs: Last Vital Signs Pulse 65 06/11/25 08:26 BP 134/82 06/11/25 08:26 Pulse Ox 98 06/11/25 08:26 Oxygen Delivery Method Room Air 06/11/25 08:26 BMI result Body Mass Index 35.5 Resp Effort & Inspection: normal respiratory effort Auscultation: clear to auscultation bilaterally Cardio Jugular venous distension: no JVD Rate: regular rate Rhythm: regular rhythm Heart sounds: S1 normal heart sound present and S2 normal heart sound present Neuro Romberg Test: Negative Assessment & Plan Assessment & Plan (1) Encounter for Medicare annual wellness exam: Code(s): Z00.00 - Encounter for general adult medical examination without abnormal findings (2) Seizures: Code(s): R56.9 - Unspecified convulsions (3) Cerebellar infarct: Code(s): I63.9 - Cerebral infarction, unspecified Plan Plan 1. Encounter for general adult medical examination without abnormal findings Z00.00 The patient is a 70-year-old male here for his annual preventative health exam. A cognitive screen and functional assessment were completed and found to be normal. His medical history, including seizure disorder, mild sleep apnea, and history of Guillain-[place], was reviewed. Fasting blood work will be held, pending review of recent labs the patient will provide from a life insurance application. Health maintenance screenings, including colonoscopy surveillance, were discussed. Vaccinations were discussed, and the patient opted to continue declining the flu and pneumonia shots. The patient will schedule a follow-up appointment. Quality Reporting (2019) Depression/Bipolar (159/160/161/177) PHQ-9: Total score: 0 Coding Level of Care Code Medicare First (G0438) Diagnoses Encounter for Medicare annual wellness exam Z00.00 Seizures R56.9 Cerebellar infarct I63.9 CPT Codes Advance Care Planning - Time spent: 1-15 minutes, on File ([id number]) Additional Codes PHQ-9 - 75104 - PHQ-9 Billing: Yes ([id number]) FRANCISCA-7 Assessment Billing - FRANCISCA-7 Assessment Tool: FRANCISCA-7 Assessment 21850 ([id number]) Time Spent (min) 30 Advance Care Planning Advance Care Planning discussion: Exists, not on file Date of discussion: 06/11/25 Who was present: Patient and me Forms completed: Health Care Proxy Time spent: 1-15 minutes, on File Actual minutes spent: 1
--- OUTSIDE RECORDS SUMMARY | 2025-06-11 15:54 | XMS_ITS | Clinical Summary ---
Author Organization [facility] Address [address] [place] [address] Care Team Providers Care Die Repairer Trimmer Dies Name Role Phone Unknown, Provider Primary Care Provider Unava ilable Social History Tobacco Use Types Packs/Day Years Used Date Smoking Tobacco: Never Assessed Sex and Gender Information Value Date Recorded Sex Assigned at Not on file Legal Sex Male 12:54 EST Gender Identity Not on file Sexual Orientation Not on file Plan of Treatment Health Maintenance Due Date Last Done Comments Hepatitis C Screen 1955 Fall Risk Screening 2018 COVID-19 Vaccine (2024- season) 2025 RSV Immunization ( o r 60+ Years) (1 - 1-dose 75+ series) 01/16/2028 Insurance MEDICARE [facility] [place] [id number] MEDICARE [facility] Care Teams Die Repairer Trimmer Dies Relationship Specialty Start Date End Date Unknown, Provider, PCP - General 01/03/24
--- OUTSIDE RECORDS SUMMARY | 2025-06-11 15:54 | XMS_ITS | Encounter Summary ---
Author Organization [facility] Address [address] [place] [address] Care Team Providers Care Cotton Machine Operator Name Role Phone Unknown, Provider MD Primary Care Provider Unava ilable Encounter Details Date Type Department Care Team (Late st Contact Info) Description 12/28/2023 Lab Requisition [facility] - Main [place] [address] [place] [address] [id number] Jose Moses MD [address] [place] [address] Encounter for screening for malignant neoplasm of colon Social History Tobacco Use Types Packs/Day Years Used Date Smoking Tobacco: Never Assessed Sex and Gender Information Value Date Recorded Sex Assigned at Not on file Legal Sex Male 12:54 EST Gender Identity Not on file Sexual Orientation Not on file documented as of this encounter Plan of Treatment Not on file documented as of this encounter Procedures Procedure Name Priority Date/Time Associated Diagnosis Comments SURGICAL PATHOLOGY Today 12/28/2023 8:25 EDT Encounter for screening for malignant neoplasm of colon documented in this encounter Results * SURGICAL PATHOLOGY (12/28/2023 8:25 EDT) Note to Patient The following pathology results have been interpreted by your pathologist and may be available to you before your health provider has had the opportunity to review them. Please allow time for your provider to receive these results and explore management options, if applicable. 01/01/2024 14:03 T [facility] Final Diagnosis A. COLON, RIGHT, POLYP: - Fragments of sessile serrated polyp. 01/01/2024 14:03 EDT [facility] Diagnosis Comment Deeper levels were examined. 01/01/2024 14:03 [facility] Attestation By the signature below, the attending physician certifies that they have 1) personally conducted a gross and/or microscopic examination of the described specimen(s), and/or personally interpreted the results of laboratory testing of the described specimen(s), and 2) personally rendered or confirmed the above diagnosis. 01/01/2024 14:03 [facility] at 1403 EDT Clinical History Encounter for screening for malignant neoplasm of colon 01/01/2024 14:03 [facility] Gross Description A. Received in formalin with, Lamin B [place] and, right colon and consists of 2 portions of tyson tissue, 3 mm and 8 x 4 x 2 mm. The larger portion is bisected and specimen is entirely submitted in A1. CORI ESPINOSA(ASCP) 12/29/2023 8:45 01/01/2024 14:03 [facility] Performing Lab [facility] 01/01/2024 14:03 [facility] Scanned Images 01/01/2024 14:03 [facility] Tissue RIGHT COLON STRUCTURE / Unknown 12/28/2023 8:25 EDT 12/29/2023 1:35 EDT us Jose Moses MD PATHOLOGY ORDERABLES Final Re sult [facility] [address] [place] [id number] documented in this encounter Visit Diagnoses Diagnosis Encounter for screening for malignant neoplasm of colon Special screening for malignant neoplasms, colon documented in this encounter Care Teams Cotton Machine Operator Relationship Specialty Start Date End Date Unknown, Provider, PCP - General 01/03/24 documented as of this encounter
--- OUTSIDE RECORDS SUMMARY | 2025-06-11 15:54 | XMS_ITS | Encounter Summary ---
Author Organization [facility] Address [address] [place] [address] Care Team Providers Care Marine Cargo Inspector Name Role Phone Unknown, Provider Primary Care Provider Unava ilable Encounter Details Date Type Department Care Team (Late st Contact Info) Description 04/14/2020 Lab Requisition [facility] Pathology & Laboratory Medicine - [facility] [address] [place] [address] Outr Resulting Lab, Provider Social History Tobacco Use Types Packs/Day Years [...] Procedure Name Priority Date/Time Associated Diagnosis Comments PTT Routine 04/14/2020 15:59 EDT documented in this encounter Results * (ABNORMAL) PTT (04/14/2020 15:59 EDT) PTT 46(H) 26 - 37 secs 04/14/2020 23:11 EDT [facility] Blood VENOUS BLOOD / Unknown 04/14/2020 15:59 EDT 04/14/2020 22:45 EDT us Provider Outr Resulting Lab HEMATOLOGY & PF4 ORD ERABLES Final Result [facility] [address] [place] [address] documented in this encounter Visit Diagnoses Not on filedocumented in this encounter Care Teams Marine Cargo Inspector Relationship Specialty Start Date End Date Unknown, Provider, PCP - General 01/03/24 documented as of this encounter
--- OUTSIDE RECORDS SUMMARY | 2025-06-11 15:54 | XMS_ITS | Encounter Summary ---
Author Organization [facility] Address [address] [place] [address] Care Team Providers Care Tanning Drum Operator Name Role Phone Unknown, Provider MD Primary Care Provider Unava ilable Encounter Details Date Type Department Care Team (Late st Contact Info) Description 06/03/2019 Lab Requisition [facility] Pathology & [place] [address] Unknown, Provider, Social History Tobacco Use Types Packs/Day Years [...] Procedure Name Priority Date/Time Associated Diagnosis Comments CCP ANTIBODIES Routine 06/03/2019 10:31 EST RHEUMATOID FACTOR Routine 06/03/2019 10: 31 EST C REACTIVE PROTEIN Routine 06/03/2019 10 :31 EST documented in this encounter Results * RHEUMATOID FACTOR (06/03/2019 10:31 EST) Rheumatoid Factor <7.5 <12.5 IU/mL 06/04/2019 11:55 EST [facility] Blood VENOUS BLOOD / Unknown 06/03/2019 10:31 EST 06/04/2019 6:29 EST us Provider Unknown CHEMISTRY & BLOOD GAS ORDERA BLES Final Result [facility] [address] [place] [address] * (ABNORMAL) C REACTIVE PROTEIN (06/03/2019 10:31 EST) C-Reactive Protein 12.6(H) <10.0 mg/L 06/04/2019 7:25 EST [facility] Blood VENOUS BLOOD / Unknown 06/03/2019 10:31 EST 06/04/2019 6:29 EST us Provider Unknown CHEMISTRY & BLOOD GAS ORDERA BLES Final Result Performing Organization Address City/[facility]/ZIP Co de Phone Number [facility] [address] [place] [address] * CCP ANTIBODIES (06/03/2019 10:31 EST) CCP Antibodies <2.5 <5.0 U/mL 06/04/2019 11:25 EST [facility] Comment:Ordering Provider: Emiliano Castelan Blood VENOUS BLOOD / Unknown 06/03/2019 10:31 EST 06/04/2019 6:29 EST us Provider Unknown IMMUNOLOGY AND SEROLOGY JOHN BARRIOS Final Result Performing Organization Address City/[facility]/ZIP Co de Phone Number [facility] [address] [place] [address] documented in this encounter Visit Diagnoses Not on filedocumented in this encounter Care Teams Tanning Drum Operator Relationship Specialty Start Date End Date Unknown, Provider, PCP - General 01/03/24 documented as of this encounter
--- OUTSIDE RECORDS SUMMARY | 2025-06-11 15:54 | XMS_ITS | Encounter Summary ---
Author Organization [facility] Address [address] [place] [address] Care Team Providers Care Product Examiner Name Role Phone Unknown, Provider Primary Care Provider Unava ilable Encounter Details Date Type Department Care Team (Late st Contact Info) Description 04/15/2020 Lab Requisition [facility] Pathology & Laboratory Medicine - [address] [id number] Outr Resulting Lab, Provider Social History Tobacco [...] Procedure Name Priority Date/Time Associated Diagnosis Comments HEMOGLOBIN A1C Routine 04/14/2020 15:59 EDT documented in this encounter Results * (ABNORMAL) HEMOGLOBIN A1C (04/14/2020 15:59 EDT) Hemoglobin A1c 6.0(H) <5.7 % 04/16/2020 9:[address] [facility] Comment: Glycemic Status References: Normal: <5.7% Pre-Diabetes: 5.7% - 6.4% Diagnostic of Diabetes: > or = 6.5% (if confirmed) Goals for glycemic control in diabetics (ADA 2017): <7.0% target for non adults with diabetes. <7.5% target for children and adolescents with Type I Diabetes. More or less stringent targets may be appropriate for individual patients. Est Avg Glucose 126 mg/dL 0 9:[address] [facility] Comment:The eAG represents t he A1c result expressed as average glucose in mg/dL. Blood VENOUS BLOOD / Unknown 04/14/2020 15:59 EDT 04/15/2020 22:22 EDT us Provider Outr Resulting Lab CHEMISTRY & BLOOD GA S ORDERABLES Final Result [facility] [address] [place] [address] documented in this encounter Visit Diagnoses Not on filedocumented in this encounter Care Teams Product Examiner Relationship Specialty Start Date End Date Unknown, Provider, PCP - General 01/03/24 documented as of this encounter
== END 2025-06-11 09:44 | disposition home or self-care (01) ==
PROVIDERS: PCP Internal Medicine; Visit Provider Internal Medicine
DX: Z00.00 Encounter for general adult medical examination without abnormal findings (principal); R56.9 Unspecified convulsions; I63.9 Cerebral infarction, unspecified

== ENCOUNTER → 2025-06-11 08:16 | Outpatient (BNVA) | payer MEDICARE, OTHER, SELFPAY | PROVIDERS: PCP Internal Medicine; Visit Provider Internal Medicine | DX: Z13.31 Encounter for screening for depression (principal); Z13.39 Encounter for screening examination for other mental health and behavioral disorders | CPT/HCPCS: 96127 ==